=== PATIENT | male | born 1965 | race Caucasian/White ===

== ENCOUNTER 2021-08-03 10:46 | Outpatient (CLI) | payer BC ==
[2021-08-03 20:31] LABS: SARS-CoV-2 PCR by NAA Not Detected (NotDetected)
== END 2021-08-03 10:47 | disposition home or self-care (01) ==
LOC: CSHLAB 10:46
PROVIDERS: ATTEND Otolaryngology Plastic Surgery within the Head & Neck
DX: Z01.818 Encounter for other preprocedural examination (principal); Z20.822 Contact with and (suspected) exposure to COVID-19
CPT/HCPCS: 93005; 93010; U0003; U0005

== ENCOUNTER 2021-08-07 08:29 | Day surgery (SDC) | payer BC ==
[2021-08-05 11:48] VITALS: BMI 23.1
[2021-08-07] MEDS ORDERED: Lidocaine 1% MPF 2 ML VIAL ONE (08:55)
[2021-08-07] MEDS ORDERED: Mupirocin 2% Ointment 22 GM Tube ONE (09:38)
[2021-08-07] MEDS ORDERED: EPINEPHrine 1 MG/ML AMP ONE (09:38)
[2021-08-07] MEDS ORDERED: CEFAZOLIN 1 GM VIAL ONE ×2 (09:39)
[2021-08-07] MEDS ORDERED: Ondansetron PF 4 MG/2 ML Vial ONE (10:42)
[2021-08-07] MEDS ORDERED: Dexamethasone 4 mg/ml Vial ONE (10:42)
[2021-08-07] MEDS ORDERED: PROPOFOL 0 ML ONE (10:42)
[2021-08-07] MEDS ORDERED: Midazolam HCl 2 mg/2 ml Vial ONE (10:42)
[2021-08-07] MEDS ORDERED: Lidocaine 1% PF 5 ML VIAL ONE (10:42)
[2021-08-07] MEDS ORDERED: Fentanyl 250 MCG/5 ML VIAL ONE (10:42)
[2021-08-07] MEDS ORDERED: Rocuronium Bromide 10 MG/ML (10ML VIAL) ONE (10:42)
[2021-08-07] MEDS ORDERED: Ketorolac Tromethamine 30 MG/ML VIAL ONE (10:43)
[2021-08-07] MEDS ORDERED: PROPOFOL 20 ML ONE ×2 (11:39→12:40)
[2021-08-07] MEDS ORDERED: Dexamethasone 20 MG/5 ML VIAL ONE (11:58)
== END 2021-08-07 15:03 | disposition home or self-care (01) ==
LOC: CSHSDC 08:29
PROVIDERS: ATTEND Otolaryngology Plastic Surgery within the Head & Neck
DX: H90.42 Sensorineural hearing loss, unilateral, left ear, with unrestricted hearing on the contralateral side (principal); Z79.899 Other long term (current) drug therapy; F32.A Depression, unspecified
CPT/HCPCS: 70250; C1789; J0171; J0690; J1100; J1885; J2250; J2405; J2704; J3010; L8614